=== PATIENT | female | born 1980 | race African-American/Black ===

== ENCOUNTER 2017-07-13 14:34 | Emergency (ER) | payer BC ==
[2017-07-13 15:52] LABS: Bilirubin Negative (Negative); Blood, Urine Negative (Negative); Glucose, Urine (Dipstick) Negative (Negative); Ketone, Urine Trace mg/dL (Negative); Nitrite Negative (Negative); Protein, Urine (Dipstick) Negative (Neg-Trace)
--- NOTE | 2017-07-13 16:43 | CT ---
CT ABDOMEN AND PELVIS WITHOUT CONTRAST: 07/13/17 Multiple axial tomograms obtained through the abdomen and pelvis without IV enhancement. Oral contra st was not given. HISTORY: Low back pain. Rectal bleeding. COMPARISON: Comparison made to CT of abdomen and pelvis 06/08/16. FINDINGS: There is a 3 x 6 mm nodule in the posterior right lung base. This is a stable nodule from the prior study. Liver, spleen and pancreas appear unremarkable considering limitations of a noncontrasted study. Adrenal glands appear normal. The kidneys are unremarkable. There is no urinary tract calculus. No evidence of hydronephrosis. The urinary bladder is contracted and not evaluated. Aorta is normal caliber. Small bowel loops appear normal. The appendix appears normal. Colon is unre markable. Pelvic structures are unremarkable. The patient appears to be posthysterectomy. IMPRESSION: No evidence of an acute abnormality. POS: [facility]
[2017-07-13] MEDS ORDERED: Acetaminophen 500 MG TAB ONE (17:45)
== END 2017-07-13 17:48 | disposition home or self-care (01) ==
LOC: SCSER 14:34
DX: M54.6 Pain in thoracic spine (principal); K62.5 Hemorrhage of anus and rectum; I10 Essential (primary) hypertension; F32.9 Major depressive disorder, single episode, unspecified
CPT/HCPCS: 74176; 81003; 82274

== ENCOUNTER 2017-09-28 14:11 | Emergency (ER) | payer BC, SELFPAY ==
[2017-09-28 15:40] LABS: Bilirubin Negative (Negative); Blood, Urine Trace (Negative); Clarity Slightly Cloudy (Clear); Glucose, Urine (Dipstick) Negative (Negative); Leukocyte Negative (Negative); Nitrite Negative (Negative); Protein, Urine (Dipstick) Negative (Neg-Trace); pH, Urine 6.5 (5.0-9.0)
[2017-09-28 15:57] LABS: Bacteria/HPF Rare-Few HPF (None Seen); WBC/HPF 0-3 HPF (0-3)
--- NOTE | 2017-09-28 16:28 | CT ---
CT OF ABDOMEN AND PELVIS PERFORMED WITHOUT CONTRAST ENHANCEMENT: 09/28/17 HISTORY: Abdominal pain and cramping. Hematuria. COMPARISON: 07/13/17 exam. The lung bases are clear of infiltrative process. A small right lower lobe pulmonary nodule measuring approximately 3 x 6 mm is stable. The liver, spleen, and pancreas regions are unremarkable. Gallbladder is contracted. Right and left adrenal glands and right and left kidneys are normal in size and appearance. There is no significant periaortic or mesenteric lymphadenopathy. CT OF PELVIS PERFORMED WITHOUT CONTRAST ENHANCEMENT: The appendix is normal in appearance. There is no evidence of adenopathy, mass or free fluid. IMPRESSION: No acute abnormalities of the abdomen or pelvis. POS: [facility]
[2017-09-28] MEDS ORDERED: Ketorolac Tromethamine 30 MG/ML VIAL ONE (16:37)
== END 2017-09-28 17:08 | disposition home or self-care (01) ==
LOC: SCSER 14:11
DX: M54.5 Low back pain (principal); R31.9 Hematuria, unspecified; I10 Essential (primary) hypertension; F32.9 Major depressive disorder, single episode, unspecified
CPT/HCPCS: 74176; 81003; 81015; 96372; J1885

== ENCOUNTER 2017-11-21 21:01 | Emergency (ER) | payer SELFPAY ==
[2017-11-21] MEDS ORDERED: traMADol HCl 50 MG TAB ONE (21:19)
== END 2017-11-21 21:26 | disposition home or self-care (01) ==
LOC: SCSER 21:01
DX: M72.2 Plantar fascial fibromatosis (principal); L72.9 Follicular cyst of the skin and subcutaneous tissue, unspecified; I10 Essential (primary) hypertension; F32.9 Major depressive disorder, single episode, unspecified
CPT/HCPCS: 99283

== ENCOUNTER 2018-04-26 06:08 | Emergency (ER) | payer SELFPAY | END 2018-04-26 07:30 | disposition home or self-care (01) | LOC: SCSER 06:08 | DX: N90.89 Other specified noninflammatory disorders of vulva and perineum (principal); I10 Essential (primary) hypertension; F32.9 Major depressive disorder, single episode, unspecified | CPT/HCPCS: 87252; 87529; 99283 ==

== ENCOUNTER 2018-05-31 09:11 | Emergency (ER) | payer SELFPAY ==
[2018-05-31] MEDS ORDERED: Dexamethasone 10 MG/ML VIAL ONE (09:34)
== END 2018-05-31 09:39 | disposition home or self-care (01) ==
LOC: SCSER 09:11
DX: J02.9 Acute pharyngitis, unspecified (principal); I10 Essential (primary) hypertension; F32.9 Major depressive disorder, single episode, unspecified
CPT/HCPCS: 99283; J1100

== ENCOUNTER 2018-11-07 08:28 | Emergency (ER) | payer SELFPAY | END 2018-11-07 09:30 | disposition home or self-care (01) | LOC: SCSER 08:28 | DX: J02.9 Acute pharyngitis, unspecified (principal); H10.12 Acute atopic conjunctivitis, left eye; I10 Essential (primary) hypertension; F32.9 Major depressive disorder, single episode, unspecified | CPT/HCPCS: 87081; 87430; 99283 ==

== ENCOUNTER 2019-01-02 23:13 | Emergency (ER) | payer OTHER ==
[2019-01-02] MEDS ORDERED: Cyclobenzaprine 10 MG TAB ONE (23:41)
[2019-01-02] MEDS ORDERED: Ketorolac Tromethamine 30 MG/ML VIAL ONE (23:41)
== END 2019-01-03 | disposition home or self-care (01) ==
LOC: SCSER 23:13
DX: M54.41 Lumbago with sciatica, right side (principal); F32.9 Major depressive disorder, single episode, unspecified; I10 Essential (primary) hypertension
CPT/HCPCS: 96372; J1885

== ENCOUNTER 2019-01-08 11:06 | Emergency (ER) | payer OTHER, SELFPAY ==
--- NOTE | 2019-01-08 11:39 | RAD ---
PORTABLE CHEST: Date: 01/08/19 HISTORY: Chest pain. COMPARISON: 05/06/15 exam. FINDINGS: Heart size and mediastinum are within normal limits. Lungs are clear of infiltrates. No significant b josefa findings. IMPRESSION: No active intrathoracic disease. POS: [facility]
[2019-01-08] MEDS ORDERED: Lidocaine Viscous Sol 2% 15 ml UD Cup ONE (11:55)
[2019-01-08] MEDS ORDERED: Ondansetron ODT 8 MG TAB ONE (11:55)
[2019-01-08] MEDS ORDERED: Mag-Al Plus 1200 MG/1200 MG/120 MG/30 ML UDCUP ONE (11:55)
== END 2019-01-08 12:00 | disposition home or self-care (01) ==
LOC: SCSER 11:06
DX: K29.00 Acute gastritis without bleeding (principal); I10 Essential (primary) hypertension; F32.9 Major depressive disorder, single episode, unspecified
CPT/HCPCS: 71045; 93005; 94760

== ENCOUNTER 2019-03-13 14:34 | Emergency (ER) | payer OTHER ==
--- NOTE | 2019-03-13 15:53 | RAD ---
Exam: XR Knee Rt 4 View STANDARD HISTORY: Right knee pain COMPARISON: None FINDINGS: No acute fracture, dislocation, or other acute osseous abnormality is identified. IMPRESSION: No acute osseous abnormality is identified.
== END 2019-03-13 16:20 | disposition home or self-care (01) ==
LOC: SCSER 14:34
DX: M25.561 Pain in right knee (principal); I10 Essential (primary) hypertension; F32.9 Major depressive disorder, single episode, unspecified

== ENCOUNTER 2019-06-09 09:14 | Emergency (ER) | payer OTHER, SELFPAY ==
[2019-06-09 10:53] LABS: Bilirubin Small (Negative); Blood, Urine Negative (Negative); Clarity Cloudy (Clear); Glucose, Urine (Dipstick) Negative (Negative); Leukocyte Negative (Negative); Nitrite Negative (Negative); Protein, Urine (Dipstick) Negative (Neg-Trace); Urobilinogen 0.2 mg/dL (Less than 2)
== END 2019-06-09 11:39 | disposition home or self-care (01) ==
LOC: SCSER 09:14
DX: K52.9 Noninfective gastroenteritis and colitis, unspecified (principal); I10 Essential (primary) hypertension; F32.9 Major depressive disorder, single episode, unspecified
CPT/HCPCS: 81003; 99284

== ENCOUNTER 2020-04-16 12:33 | Emergency (ER) | payer OTHER ==
[2020-04-16 14:02] LABS: #Lymphocytes 1.6 thou/uL (1.20-3.40); #Monocytes 0.5 thou/uL (0.11-0.59); #Neutrophils 3.2 thou/uL (1.40-6.50); %Eosinophils 0.5 % (0.0-10.0); %Lymphocytes 29.9 % (21.0-51.0); %Monocytes 9.5 % (0.0-10.0); Hemoglobin 13.7 g/dL (12.0-16.0); Mean Corpuscular HGB CONC 33.4 g/dL (32.0-36.0); Mean Corpuscular Hemoglobin 31.1 pg (27.0-31.0); Mean Corpuscular Volume 93.3 fL (78.0-98.0); Mean Platelet Volume 8.4 fL (7.4-10.4); Platelet Count 235 thou/uL (130-400); RBC Distribution Width 11.6 % (11.5-14.5); White Blood Cell (WBC) Count 5.3 thou/uL (4.8-10.8)
[2020-04-16 14:27] LABS: ALT (SGPT) 25 U/L (8-55); AST (SGOT) 21 U/L (5-34); Albumin 3.9 g/dL (3.5-5.0); Alkaline Phosphatase 52 U/L (40-110); Anion Gap 9 mmol/L (10-20); BUN (Urea Nitrogen) 6 mg/dL (7.0-18.7); Bilirubin, Total 0.3 mg/dL (0.2-1.2); Calc. Creatinine Clearance 0 mL/min (70-130); Calcium 8.8 mg/dL (7.8-10.44); Carbon Dioxide 29 mmol/L (22-29); Chloride 104 mmol/L (98-107); Estimated GFR-MDRD 82; Glucose 119 mg/dL (70-105); Potassium 3.7 mmol/L (3.5-5.1); Protein, Total 6.9 g/dL (6.0-8.3); Sodium 138 mmol/L (136-145)
--- NOTE | 2020-04-16 14:37 | RAD ---
RADIOGRAPH CHEST 1 VIEW: DATE: 04/16/2020 HISTORY: 39-year-old COVID-19 positive female with dyspnea and tachycardia FINDINGS: Slightly suboptimal visualization of lower lung zones because of body habitus. There are no evidence of consolidation, pulmonary edema, pneumothorax, or cardiomegaly. The lateral c ostophrenic angles are sharp. The cervical trachea is significantly deviated to the right, similar to 01/08/2019, and somewhat great er than on 05/06/2015, suggestive of a slow growing left neck mass IMPRESSION: 1. Left neck mass, perhaps a goiter, displacing trachea to the right 2. No acute cardiopulmonary findings.
[2020-04-17 14:53] LABS: SARS-CoV-2 MS2 Positive; SARS-CoV-2 N Gene Positive; SARS-CoV-2 S Gene Positive; SARS-CoV-2 by NAA DETECTED (NotDetected); SARS-CoV-2 orf1ab Positive
== END 2020-04-16 16:30 | disposition home or self-care (01) ==
LOC: ERS 12:33
DX: U07.1 COVID-19 (principal); E07.9 Disorder of thyroid, unspecified; I10 Essential (primary) hypertension; F32.9 Major depressive disorder, single episode, unspecified
CPT/HCPCS: 71045; 80053; 85025; 87635; 93005; 96360; U0003

== ENCOUNTER 2021-05-13 06:02 | Day surgery (SDC) | payer BC ==
[2021-05-12 10:35] VITALS: BMI 49.7
[2021-05-13] MEDS ORDERED: Midazolam HCl 2 mg/2 ml Vial ONE (07:08)
[2021-05-13] MEDS ORDERED: Fentanyl 100 MCG/2 ML VIAL ONE ×4 (07:21→09:58)
[2021-05-13] MEDS ORDERED: Ketorolac Tromethamine 30 MG/ML VIAL ONE (07:28)
[2021-05-13] MEDS ORDERED: Lidocaine 1% PF 5 ML VIAL ONE (07:28)
[2021-05-13] MEDS ORDERED: Ondansetron PF 4 MG/2 ML Vial ONE (07:28)
[2021-05-13] MEDS ORDERED: Glycopyrrolate 0.2 MG/ML 5 ML SYRINGE ONE (07:28)
[2021-05-13] MEDS ORDERED: Rocuronium Bromide 10 MG/ML (10ML VIAL) ONE (07:28)
[2021-05-13] MEDS ORDERED: Dexamethasone 20 MG/5 ML VIAL ONE (07:28)
[2021-05-13] MEDS ORDERED: PROPOFOL 200 MG/20 ML VIAL ONE (07:28)
[2021-05-13] MEDS ORDERED: Lidocaine 1% (PF) 30 ML VIAL ONE (07:40)
[2021-05-13] MEDS ORDERED: SUGAMMADEX SODIUM 200 MG/2 ML VIAL ONE (08:38)
[2021-05-13] MEDS ORDERED: Morphine 4 MG/ML VIAL ONE ×2 (10:41→10:55)
== END 2021-05-13 12:40 | disposition home or self-care (01) ==
LOC: SDC 06:02
PROVIDERS: ATTEND Orthopaedic Surgery
DX: G56.02 Carpal tunnel syndrome, left upper limb (principal); G56.22 Lesion of ulnar nerve, left upper limb; I10 Essential (primary) hypertension; Z79.899 Other long term (current) drug therapy
CPT/HCPCS: J0690; J1100; J1885; J2001; J2250; J2270; J2405; J2704; J3010

== ENCOUNTER 2024-06-16 22:16 | Observation (INO) | payer BC, OTHER, SELFPAY ==
[~2024-06-16 22:16] MED LIST: Iopamidol-370 76% 500 ML MDV (1 ML CHARGE) ONE
[2024-06-16] MEDS ORDERED: levETIRAcetam 500 MG (5 mL) VIAL ONE (22:41)
[2024-06-16 22:45] LABS: #Basophils 0.03 10x3/uL (0.0-0.2); #Eosinphils Less than 0.03 10x3/uL (0.0-0.7); %Basophils 0.3 % (0.0-1.0); %Eosinophils 0.2 % (0.0-10.0); %Lymphocytes 25.8 % (21.0-51.0); %Monocytes 6.2 % (0.0-10.0); Hematocrit 38.8 % (36.0-47.0); Hemoglobin 13.1 g/dL (12.0-16.0); Mean Corpuscular HGB CONC 33.8 g/dL (32.0-36.0); Mean Corpuscular Hemoglobin 30.8 pg (27.0-31.0); Mean Corpuscular Volume 91.1 fL (78.0-98.0); Mean Platelet Volume 10.3 fL (7.4-10.4); Platelet Count 267 10x3/uL (130-400); RBC Distribution Width 12.2 % (11.5-14.5); Red Blood Cell (RBC) Count 4.26 mill/uL (4.20-5.40)
[2024-06-16 23:09] LABS: BHCG - Serum Negative (NEGATIVE); Pregs Control Background? CLEAR/WHITE (CLR/WHITE); Pregs Control Bar Appear? YES (CONTROL BAR)
[2024-06-16 23:16] LABS: ALT (SGPT) 17 U/L (8-55); AST (SGOT) 15 U/L (5-34); Acetaminophen Less than 10 mcg/mL (Less than 10); Alcohol Less than 10.0 mg/dL (Less than 10); Alkaline Phosphatase 66 U/L (40-110); Anion Gap 14 mmol/L (10-20); BUN (Urea Nitrogen) 16 mg/dL (7.0-18.7); Bilirubin, Total 0.5 mg/dL (0.2-1.2); Calc. Creatinine Clearance 0 mL/min (70-130); Calcium 9.6 mg/dL (7.8-10.44); Carbon Dioxide 24 mmol/L (22-29); Chloride 110 mmol/L (98-107); Estimated GFR 91; Globulin 3.1 g/dL (2.4-3.5); Glucose 137 mg/dL (70-105); Potassium 3.9 mmol/L (3.5-5.1); Protein, Total 7.1 g/dL (6.0-8.3); Salicylate Less than 8.0 mg/dL (Less than 8.0); Sodium 144 mmol/L (136-145)
[2024-06-16 23:52] LABS: Amphetamine Not Detected (NotDetected); Barbiturates Screen Not Detected (NotDetected); Benzodiazepine Screen Not Detected (NotDetected); Cocaine Metabolite Screen Not Detected (NotDetected); Methadone Not Detected (NotDetected); Methamphetamine Not Detected (NotDetected); Opiate Screen Not Detected (NotDetected); Oxycodone Screen Not Detected (NotDetected); Phencyclidine (PCP) Not Detected (NotDetected); THC/Cannabinoid Screen Detected (NotDetected); Tricyclic Screen Not Detected (NotDetected)
[2024-06-17] MEDS ORDERED: Lorazepam 2 MG/ML VIAL SLOW IVP PRN (01:51)
[2024-06-17] MEDS ORDERED: Acetaminophen 650 MG Suppository PR PRN (01:52)
[2024-06-17] MEDS ORDERED: Ondansetron PF 4 MG/2 ML Vial IVP PRN (01:52)
[2024-06-17] MEDS ORDERED: Ondansetron ODT 4 MG TAB PO PRN (01:52)
[2024-06-17 02:18] LABS: Lactic Acid 1.06 mmol/L (0.5-2.2)
[2024-06-17] MEDS: Lactated Ringer's 1,000 ML IV SCH (03:02)
[2024-06-17] MEDS: Acetaminophen 325 MG TAB PO SCH (03:09)
[2024-06-17 03:13] LABS: Magnesium 2.1 mg/dL (1.6-2.6)
[2024-06-17 03:23] LABS: Free T4 (Free Thyroxine) 1.42 ng/dL (0.70-1.48)
[2024-06-17 04:56] LABS: #Basophils 0.03 10x3/uL (0.0-0.2); #Eosinphils Less than 0.03 10x3/uL (0.0-0.7); %Basophils 0.2 % (0.0-1.0); %Lymphocytes 18.6 % (21.0-51.0); %Monocytes 4.2 % (0.0-10.0); %Neutrophils 76.7 % (42.0-75.0); Hematocrit 35.2 % (36.0-47.0); Mean Corpuscular HGB CONC 34.1 g/dL (32.0-36.0); Mean Corpuscular Hemoglobin 30.5 pg (27.0-31.0); Mean Corpuscular Volume 89.6 fL (78.0-98.0); Mean Platelet Volume 10.7 fL (7.4-10.4); Platelet Count 246 10x3/uL (130-400); RBC Distribution Width 12.1 % (11.5-14.5); Red Blood Cell (RBC) Count 3.93 mill/uL (4.20-5.40)
[2024-06-17 05:13] LABS: Anion Gap 11 mmol/L (10-20); BUN (Urea Nitrogen) 11 mg/dL (7.0-18.7); Calc. Creatinine Clearance 151 mL/min (70-130); Carbon Dioxide 25 mmol/L (22-29); Chloride 112 mmol/L (98-107); Estimated GFR 106; Glucose 92 mg/dL (70-105); Sodium 144 mmol/L (136-145)
[2024-06-17] MEDS ORDERED: Acetaminophen 325 MG TAB ONE (08:05)
[2024-06-17] MEDS ORDERED: Famotidine 20 MG TAB ONE (08:05)
[2024-06-17] MEDS: Famotidine 20 MG TAB PO SCH (08:09)
[2024-06-17] MEDS: Famotidine/PF 20 mg/2ml Vial SLOW IVP SCH (10:56)
[2024-06-17] MEDS ORDERED: Magnevist 469MG/ML 20 ML VIAL ONE (12:26)
[2024-06-18] MEDS: levETIRAcetam 500 MG (5 mL) VIAL SLOW IVP SCH (02:37)
[2024-06-18 02:43] VITALS: BMI 34.5
[2024-06-18] MEDS: levETIRAcetam 500 MG TAB PO SCH (09:24)
[2024-06-18 17:18] VITALS: BP 125/85; TEMP 98.8
== END 2024-06-18 18:33 | disposition home or self-care (01) ==
LOC: ERS 22:16 → ERHOLD 06-17 00:33 → 2SE 06-17 19:54
PROVIDERS: ADMIT Student in an Organized Health Care Education/Training Program; ATTEND Student in an Organized Health Care Education/Training Program
DX: R56.9 Unspecified convulsions (principal); R41.82 Altered mental status, unspecified; E89.0 Postprocedural hypothyroidism; I10 Essential (primary) hypertension; E11.9 Type 2 diabetes mellitus without complications; G93.41 Metabolic encephalopathy; F12.10 Cannabis abuse, uncomplicated; F32.A Depression, unspecified; Z98.890 Other specified postprocedural states; Z90.89 Acquired absence of other organs; Z79.899 Other long term (current) drug therapy; Z90.710 Acquired absence of both cervix and uterus
CPT/HCPCS: 36415; 51701; 70496; 70498; 70553; 76376; 80048; 80053; 80306; 80307; 83605; 83735; 84146; 84439; 84443; 84481; 84703; 85025; 93005; 93970; 94760; 95700; 95711; 95813; 95819; 96361; 96374; A9579; G0378; J1953; J7120; Q9967

== ENCOUNTER 2025-08-08 19:02 | Emergency (ER) | payer BC, OTHER ==
[2025-08-08 19:37] LABS: #Basophils Less than 0.03 10x3/uL (0.0-0.2); #Eosinophils 0.03 10x3/uL (0.0-0.7); #Monocytes 0.76 10x3/uL (0.11-0.59); #Neutrophils 6.20 10x3/uL (1.40-6.50); %Basophils 0.2 % (0.0-1.0); %Eosinophils 0.3 % (0.0-10.0); %Lymphocytes 26.5 % (21.0-51.0); %Monocytes 7.9 % (0.0-10.0); %Neutrophils 64.6 % (42.0-75.0); Hematocrit 37.6 % (36.0-47.0); Hemoglobin 12.1 g/dL (12.0-16.0); Mean Corpuscular Hemoglobin 29.7 pg (27.0-31.0); Mean Corpuscular Volume 92.2 fL (78.0-98.0); Platelet Count 241 10x3/uL (130-400); Red Blood Cell (RBC) Count 4.08 mill/uL (4.20-5.40); White Blood Cell (WBC) Count 9.60 10x3/uL (4.8-10.8)
[2025-08-08 19:52] LABS: ALT (SGPT) 10 U/L (Less than 34); AST (SGOT) 13 U/L (11-34); Albumin 2.8 g/dL (3.1-4.5); Alkaline Phosphatase 46 U/L (40-110); Anion Gap 9 mmol/L (10-20); BUN (Urea Nitrogen) 11 mg/dL (7.0-18.7); Bilirubin, Total 0.2 mg/dL (0.3-1.2); Calc. Creatinine Clearance 0 mL/min (70-130); Calcium 8.0 mg/dL (7.8-10.44); Carbon Dioxide 26 mmol/L (22-29); Chloride 109 mmol/L (98-107); Globulin 2.0 g/dL (2.4-3.5); Glucose 92 mg/dL (70-105); Lipase 42 U/L (8-78); Potassium 3.6 mmol/L (3.5-5.1); Sodium 140 mmol/L (136-145)
[2025-08-08 19:55] LABS: BHCG - Serum Negative (NEGATIVE); Pregs Control Background? CLEAR/WHITE (CLR/WHITE); Pregs Control Bar Appear? YES (CONTROL BAR)
[2025-08-08 20:56] LABS: Bacteria/HPF None Seen HPF (None Seen); CAUTI Indications for Culture Alt mental st,lethar; Glucose, Urine (Dipstick) Normal (Negative); Leukocyte Negative Leu/uL (Negative); Protein, Urine (Dipstick) Negative (Neg-Trace); RBC/HPF 0-3 HPF (0-3); WBC/HPF 0-3 HPF (0-3)
[2025-08-08 21:05] LABS: Specific Gravity, Urine 1.020 (1.002-1.036)
[2025-08-08 21:06] LABS: Urine Culture Reflex No No
== END 2025-08-08 21:01 | disposition home or self-care (01) ==
LOC: ERS 19:02
DX: R10.9 Unspecified abdominal pain (principal); R55 Syncope and collapse; I10 Essential (primary) hypertension; Z79.899 Other long term (current) drug therapy
CPT/HCPCS: 71045; 74177; 80053; 81001; 83690; 84484; 84703; 85025; 93005; 96374; J3010